=== PATIENT | male | born 1970 | race Caucasian/White ===

== ENCOUNTER 2017-09-30 18:34 | Emergency (ER) | payer BC, SELFPAY ==
[2017-09-30 19:18] VITALS: BP 141/85; PULSE 80; RESP 20; TEMP 36.6; O2SAT 99; BMI 23.1
--- NOTE | 2017-09-30 20:39 | HMH.EDUTC ---
[facility] Disposition Clinical Impression: Hiatal hernia Chest pain Qualifiers: Chest pain type: other chest pain Qualified Code(s): R07.89 - Other chest pain Disposition: Left Against Medical Advice Condition on Discharge: Good Instructions: DI for Hiatal Hernia, DI for Chest Pain Additional Instructions: As we discussed, this is against my advice. We have reviewed the possible causes of your symptoms and the risk associated with them. You accept these risk and want to go home rather then cardiac workup. Seek care immediately for new or worsening symptoms. we have provided you with a list of providers accepting patients. I would encourage you find him a new primary care provider and make an appt YASMIN as it can take weeks to get a new patient appointment. In the meantime, follow up in the clinic or ER for new, worsening or persistent symptoms. Forms: Work/School Release Time of Disposition: 21:33 Medical Decision Making Vital Signs: 09/30/17 19:18 09/30/17 21:34 Temperature 97.9 F 97 F L Temperature Source Temporal Artery Scan Pulse Rate 88 Pulse Rate [Brachial] 80 Respiratory Rate 20 20 Blood Pressure 145/86 Blood Pressure [Right Arm] 141/85 Blood Pressure Mean [Right Arm] 103 Blood Pressure Source [Right Arm] Automatic Cuff Blood Pressure Position [Right Arm] Sitting 02 Sat by Pulse Oximetry 99 Oxygen Delivery Method Room Air - Lab Data Lab results reviewed: Yes: I reviewed the patient's lab results. Lab Results 09/30/17 20:46: Influenza Type A Ag Negative, Influenza Type B Ag Negative - Radiology Data #1 Image(s): Chest Image Reviewed: Yes I have reviewed radiologist's interpretation, Yes I reviewed the patient's radiology image w/the ED provider Chelsie w/ Dr. Pinto then Dr. Alvarez read it. Moderate hiatal hernia. No acute findings - Pato Inquiry Pt receiving controlled substance: No - Reevaluation(s) Time: 20:45 Reevaluation #1: Discussed symptoms and exam with pt. reports she wasn't told about chest pain and pt admits he hadn't told anyone (including triage/nursing staff). Discussed concerns with symptoms and possible differentials and risk of not getting immediate medical attention. Advise immediate transfer to ER. Pt refusing. Wants flu and CXR first and if negative we will talk then . He declines any cardiac workup at this time until those results are available despite the risk of declining suddenly. Time: 21:20 Reevaluation #3: Rvwd flu test and CXR results with patient. Re-encouraged Cardiac workup. patient continues to refuse. Wants to go home. Will agree to return for new, worsening or persistent symptoms. Again I discussed the risk if this is cardiac how it can worsen, even suddenly, and he could not make it back to hospital before dying. pt wants to accept this risk and leave. [facility] HPI - General Stated complaint: Headache,SOB,Sore Throat Time Seen by Provider: 09/30/17 20:39 Mode of Arrival: Ambulatory Source of Information: Patient Limitations: No Limitations Description of Symptoms (Recalled from Triage Doc. by RN): PT IS C/O CONGESTION AND A COUGH THAT STARTED YESTERDAY HEENT Symptoms (Recalled from RN notes): No Resp Symptoms (Recalled from RN notes): Yes (COUGH) Skin Symptoms (Recalled from RN notes): No MS Symptoms (Recalled from RN notes): No Functional Status (Recalled from RN notes): NA - History of Present Illness Provider Complaint: c/o nonprod cough, SOA, left anterior chest pain. Reports started yesterday. Unchanged today. No known sick contacts. Hx of SVT w/ ablation. Otherwise, hasn't been to doctor in who knows how long . Hasn't taken or tried anything for symptoms. Chest pain present at rest like a headache in my chest . Worse with cough. Unchanged with movement or touch. - Related Data Home Medications Medication Instructions Recorded Confirmed No Known Home Medications [No 09/30/17 09/30/17 Known Home Medications] Al
--- NOTE | 2017-09-30 20:46 | XR_ITS ---
XR chest 2V HISTORY: ITS.REASON: nonprod cough, SOA, CP worse w/ cough, smoker ORDERING PHYSICIAN: Jameel Bryant PATIENT AGE: 46 years COMPARISON: 03/17/2016 FINDINGS: Normal heart size. Hiatal hernia. The lungs are clear without infiltrates, suspicious nodules, or pleural effusions. No acute bony abnormalities. IMPRESSION: Moderate-sized hiatal hernia, no acute finding
--- NOTE | 2017-09-30 20:46 | ED_ITS ---
[facility] Disposition Clinical Impression: Hiatal hernia Chest pain Qualifiers: Chest pain type: other chest pain Qualified Code(s): R07.89 - Other chest pain Disposition: Left Against Medical Advice Condition on Discharge: Good Instructions: DI for Hiatal Hernia, DI for Chest Pain Additional Instructions: As we discussed, this is against my advice. We have reviewed the possible causes of your symptoms and the risk associated with them. You accept these risk and want to go home rather then cardiac workup. Seek care immediately for new or worsening symptoms. we have provided you with a list of providers accepting patients. I would encourage you find him a new primary care provider and make an appt YASMIN as it can take weeks to get a new patient appointment. In the meantime, follow up in the clinic or ER for new, worsening or persistent symptoms. Forms: Work/School Release Time of Disposition: 21:33 Medical Decision Making Vital Signs: 09/30/17 19:18 09/30/17 21:34 Temperature 97.9 F 97 F L Temperature Source Temporal Artery Scan Pulse Rate 88 Pulse Rate [Brachial] 80 Respiratory Rate 20 20 Blood Pressure 145/86 Blood Pressure [Right Arm] 141/85 Blood Pressure Mean [Right Arm] 103 Blood Pressure Source [Right Arm] Automatic Cuff Blood Pressure Position [Right Arm] Sitting 02 Sat by Pulse Oximetry 99 Oxygen Delivery Method Room Air - Lab Data Lab results reviewed: Yes: I reviewed the patient's lab results. Lab Results 09/30/17 20:46: Influenza Type A Ag Negative, Influenza Type B Ag Negative - Radiology Data #1 Image(s): Chest Image Reviewed: Yes I have reviewed radiologist's interpretation, Yes I reviewed the patient's radiology image w/the ED provider Chelsie w/ Dr. Pitno then Dr. Alvarez read it. Moderate hiatal hernia. No acute findings - Pato Inquiry Pt receiving controlled substance: No - Reevaluation(s) Time: 20:45 Reevaluation #1: Discussed symptoms and exam with pt. reports she wasn't told about chest pain and pt admits he hadn't told anyone (including triage/nursing staff). Discussed concerns with symptoms and possible differentials and risk of not getting immediate medical attention. Advise immediate transfer to ER. Pt refusing. Wants flu and CXR first and if negative we will talk then . He declines any cardiac workup at this time until those results are available despite the risk of declining suddenly. Time: 21:20 Reevaluation #3: Rvwd flu test and CXR results with patient. Re-encouraged Cardiac workup. patient continues to refuse. Wants to go home. Will agree to return for new, worsening or persistent symptoms. Again I discussed the risk if this is cardiac how it can worsen, even suddenly, and he could not make it back to hospital before dying. pt wants to accept this risk and leave. [facility] HPI - General Stated complaint: Headache,SOB,Sore Throat Time Seen by Provider: 09/30/17 20:39 Mode of Arrival: Ambulatory Source of Information: Patient Limitations: No Limitations Description of Symptoms (Recalled from Triage Doc. by RN): PT IS C/O CONGESTION AND A COUGH THAT STARTED YESTERDAY HEENT Symptoms (Recalled from RN notes): No Resp Symptoms (Recalled from RN notes): Yes (COUGH) Skin Symptoms (Recalled from RN notes): No MS Symptoms (Recalled from RN notes): No Functional Status (Recalled from RN notes): NA - History of Present Illness Provider Complaint: c/o nonprod cou
[2017-09-30 21:16] LABS: UTC Influenza A Antigen Negative (Negative); UTC Influenza B Antigen Negative (Negative)
[2017-09-30 21:34] VITALS: BP 145/86; PULSE 88; RESP 20; TEMP 36.1; O2SAT 99
== END 2017-09-30 21:35 | disposition left against medical advice (07) ==
PROVIDERS: Emergency Provider Nurse Practitioner Family
DX: R07.89 Other chest pain (principal); Z53.21 Procedure and treatment not carried out due to patient leaving prior to being seen by health care provider; J02.9 Acute pharyngitis, unspecified; R06.02 Shortness of breath; R51 Headache
CPT/HCPCS: 71046; 87804; 99202

== ENCOUNTER → 2019-03-16 16:25 | Outpatient (CLI) | payer BC, SELFPAY ==
--- NOTE | 2019-03-16 16:32 | XR_ITS ---
XR foot LT min 3V HISTORY: ITS.REASON: LT. FOOT PAIN ORDERING PHYSICIAN: Darion Diana MD PATIENT AGE: 48 years COMPARISON: None FINDINGS: No fracture or dislocation. No lytic or blastic change. There is normal mineralization.. The joint spaces are well-preserved. No significant degenerative/arthritic changes. No erosive changes evident. There is a small calcaneal spur nonspecific IMPRESSION: Negative, no acute finding
== END ==
PROVIDERS: PCP Family Medicine; Visit Provider Family Medicine
DX: M79.672 Pain in left foot (principal)
CPT/HCPCS: 73630

== ENCOUNTER 2020-05-20 06:10 | Emergency (ER) | payer BC, SELFPAY ==
--- NOTE | 2020-05-20 06:15 | PC.NURSE ---
urine obtained and sent to lab.discussed waiting on lab results for toradol. doesn't want strong pain meds.
[2020-05-20 06:20] VITALS: BP 124/91; PULSE 58; RESP 17; TEMP 36.5; O2SAT 99; BMI 26.9
--- NOTE | 2020-05-20 06:21 | PC.NURSE ---
placed in gown, given blankets
[2020-05-20 06:37] LABS: Microscopic, Urine URINE MICROSCOPIC (MICROSCOPIC)
[2020-05-20 06:40] LABS: Basophils # 0.1 K/mm3 (0-0.2); Basophils % 0.6 % (0.1-2.0); Eosinophils # 0.2 K/mm3 (0.0-0.4); Eosinophils % 1.6 % (0.1-12.0); Hematocrit 54.3 % (42.0-52.0); Lymphocytes # 1.3 K/mm3 (0.7-4.5); Lymphocytes % 14.2 % (10-50); Mean Corpuscular HGB Conc 33.5 g/dL (31.8-35.4); Mean Corpuscular Hemoglobin 31.9 pg (27.0-31.2); Mean Corpuscular Volume 95.2 fl (80-94); Monocytes # 0.5 K/mm3 (0.1-1.0); Monocytes % 5.6 % (1.7-9.3); Neutrophils # 7.2 K/mm3 (1.8-7.8); Platelet Count 244 K/mm3 (142-424); Red Cell Distribution Width 13.5 % (11.5-17.5); White Blood Count 9.2 K/mm3 (4.8-10.8)
[2020-05-20 06:41] LABS: Hemoglobin 18.2 g/dL (14.1-18.0)
[2020-05-20 06:46] LABS: Chloride 104 mmol/L (98-107); Potassium 4.4 mmoL/L (3.5-5.1); Sodium 139 mmol/L (136-145)
--- NOTE | 2020-05-20 06:47 | CT_ITS ---
PROCEDURE: CT ABDOMEN PELVIS WO CON CLINICAL INDICATION: llq abd pain Left lower quadrant abdominal pain COMPARISON: CT CT ABDOMEN PELVIS WO CON from 04/25/2019 TECHNIQUE: Axial images obtained with sagittal and coronal reformats. All CT scans at the facility use one or more dose reduction, viz: automated exposure control, ma/kV adjustment per patient size (including targeted exams where dose is matched to indication, i.e. head), or iterative reconstruction technique. FINDINGS: LOWER THORAX: There is a large hiatal hernia. ABDOMEN & PELVIS: A 3 mm hypodensity is present in the left hepatic lobe which is stable nonspecific too small to categorize. The liver is otherwise unremarkable. The spleen, adrenal glands, pancreas, and gallbladder have an unremarkable appearance. There are punctate bilateral renal calculi. A 4 mm stone is present in the proximal to mid 1/3 of the left ureter at the L3-L4 level. This is causing mild left-sided obstructive uropathy. Unremarkable appendix. There is a mild amount of retained colonic feces. The bowel gas pattern is nonspecific. No intestinal obstruction or free air. No acute bony findings. IMPRESSION: Bilateral nephrolithiasis with 4 mm stone in the proximal to mid left ureter causing mild left-sided obstructive uropathy. Large hiatal hernia. Dictated by: Jer Alvarez MD 05/20/2020 09:29 Jer Alvarez MD in [place] 05/20/2020 09:29
[2020-05-20 06:48] LABS: Amylase 112 U/L (30-110); Blood Urea Nitrogen 4 mg/dl (9-20); Creatinine Clearance Estimated 125 mL/min (50-200); Estimated Glomerular Filt Rate 80 ml/min (>60); GFR (African American) 97 ML/MIN (>60)
[2020-05-20 06:49] LABS: Alanine Aminotransferase 26 U/L (12-78); Albumin Level 4.4 g/dl (3.5-5.0); Albumin/Globulin Ratio 1.3 (1.1-1.8); Alkaline Phosphatase 81 U/L (38-126); Anion Gap 11.4 mEq/L (5-15); Aspartate Amino Transferase 29 U/L (17-59); Bilirubin,Total 0.5 mg/dl (0.2-1.3); Calcium 9.3 mg/dl (8.4-10.2); Carbon Dioxide 28 mmol/L (22.0-30.0); Globulin 3.4 g/dL (1.3-3.2); Glucose 141 mg/dl (74-100); Lipase 225 U/L (23-300); Total Protein,Serum 7.8 g/dl (6.3-8.2)
[2020-05-20 06:55] LABS: Appearance,Urine CLOUDY (Clear); Bilirubin,Urine Negative (Negative); Blood, Urine 3+ (Negative); Color,Urine YELLOW (Yellow); Glucose,Urine (UA) Negative (Negative); Ketones,Urine Negative (Negative); Leukocyte Esterase,Urine Negative (Negative); Nitrate,Urine Negative (Negative); Protein,Urine 1+ (Negative); Specific Gravity, Urine >= 1.030 (1.005-1.030); Urobilinogen,Urine 0.2 EU/dl (0.2)
[2020-05-20 07:03] LABS: RBC,Urine 20-50 #/hpf (0-3)
--- NOTE | 2020-05-20 07:36 | HMH.EDNVD ---
ED Disposition Clinical Impression: Renal colic on left side, Elevated hemoglobin Disposition: Home, Self-Care Condition on Discharge: Good Instructions: DI for Kidney Stones Additional Instructions: fluids and call pcp for follow up and also dr saldana Prescriptions: Tamsulosin HCl [Flomax 0.4mg capsule] 0.4 mg PO HS #10 cap Transmission Status: Pending to [facility] Hydrocod/Acet 5/325 mg [[place] 5/325mg tablet] 1 tab PO Q6HP PRN #10 tab PRN Reason: Moderate To Severe Pain Prescription Printed Referrals: Darion Diana MD [Primary Care Provider] - Zaid Saldana MD [Staff Physician] - - Critical Care Critical Care Time: No Attestation: On 05/20/20, the high probability of a clinically significant, sudden or life threatening deterioration of the following system(s) required my full and direct attention, intervention and personal management. The time I documented below is in addition to time spent performing reported procedures but includes the following listed in this critical care notation. Medical Decision Making - Medical Records Medical records reviewed: Yes: I reviewed the patient's medical records. - Pato Inquiry Pt receiving controlled substance: No Vital Signs: 05/20/20 06:20 Temperature 97.7 F Temperature Source Oral Pulse Rate [Right Brachial] 58 L Respiratory Rate 17 Blood Pressure [Right Arm] 124/91 H Blood Pressure Mean [Right Arm] 102 Blood Pressure Source [Right Arm] Automatic Cuff Blood Pressure Position [Right Arm] Sitting 02 Sat by Pulse Oximetry 99 Oxygen Delivery Method Room Air - Lab Data Lab results reviewed: Yes: I reviewed the patient's lab results. Lab Results 05/20/20 06:20: Urine Color Yellow, Urine Appearance Cloudy, Urine pH 5.0, Ur Specific [place] >= 1.030, Urine Protein 1+, Urine Glucose (UA) Negative, Urine Ketones Negative, Urine Blood 3+, Urine Nitrate Negative, Urine Bilirubin Negative, Urine Urobilinogen 0.2, Ur Leukocyte Esterase Negative, Urine RBC 20-50, Urine WBC 3-5, Ur Squamous Epith Cells 3-5 05/20/20 06:20: WBC 9.2, RBC 5.70, Hgb 18.2 H*, Hct 54.3 H, MCV 95.2 H, MCH 31.9 H, MCHC 33.5, RDW 13.5, Plt Count 244, MPV 8.0, Neut % (Auto) 78.0, Lymph % (Auto) 14.2, [place] % (Auto) 5.6, Eos % (Auto) 1.6, Baso % (Auto) 0.6, Neut # (Auto) 7.2, Lymph # (Auto) 1.3, [place] # (Auto) 0.5, Eos # (Auto) 0.2, Baso # (Auto) 0.1 05/20/20 06:20: Sodium 139, Potassium 4.4, Chloride 104, Carbon Dioxide 28, Anion Gap 11.4, BUN 4 L, Creatinine 1.00, Estimated Creat Clear 125, Estimated GFR 80, Est GFR ( Amer) 97, Glucose 141 H, Calcium 9.3, Total Bilirubin 0.5, AST 29, ALT 26, Alkaline Phosphatase 81, Total Protein 7.8, Albumin 4.4, Globulin 3.4 H, Albumin/Globulin Ratio 1.3, Amylase 112 H, Lipase 225 Result diagrams: 05/20/20 06:20 05/20/20 06:20 Orders (Tests/Meds): ED MEDICATIONS Generic Name Dose Route Start Last Admin Trade Name Freq PRN Reason Stop Dose Admin Sodium Chloride 1,000 mls @ 999 mls/hr 05/20/20 06:30 05/20/20 06:30 Sod Chlor 0.9% 1000ml Bag IV 05/20/20 07:30 999 mls/hr .Q1H1M FREEDOM Administration Discontinued Medications Generic Name Dose Route Start Last Admin Trade Name Freq PRN Reason Stop Dose Admin Ketorolac Tromethamine 30 mg 05/20/20 06:56 05/20/20 06:59 Toradol 30mg/Ml Vial IV 05/20/20 06:57 30 mg ONCE ONE Administration Ondansetron HCl 4 mg 05/20/20 06:56 05/20/20 06:59 Zofran 4mg/2ml Vial IV 05/20/20 06:57 4 mg ONCE ONE Administration ORDERS Category Date Time Status CT abdomen pelvis wo con Stat Cat Scan 05/20/20 06:47 Taken - CT Data CT Scan: Abdomen, Pelvis Time Received: 07:[address] Reviewed: Yes: I have viewed the radiologist's interpretation Preliminary Findings: Abnormal (lt kidney stone ) Nausea/Vomiting/Diarrhea HPI - General Chief complaint: Abdominal Pain Stated complaint: Left sided pain,nausea Time Seen by Provider: 05/20
[2020-05-20 07:53] VITALS: BP 136/98; PULSE 73; RESP 18; TEMP 36.5; O2SAT 99
== END 2020-05-20 07:55 | disposition home or self-care (01) ==
PROVIDERS: Emergency Provider Emergency Medicine; PCP Family Medicine
DX: N20.0 Calculus of kidney (principal); D58.2 Other hemoglobinopathies; Z87.442 Personal history of urinary calculi; F17.210 Nicotine dependence, cigarettes, uncomplicated; Z90.09 Acquired absence of other part of head and neck
CPT/HCPCS: 74176; 80053; 81001; 82150; 83690; 85025; 96365; 96375; 99283; J2405

== ENCOUNTER 2020-06-09 12:55 | Emergency (ER) | payer OTHER, SELFPAY ==
--- NOTE | 2020-06-09 13:01 | HMH.EDGENADL ---
ED Disposition Clinical Impression: Closed head injury Qualifiers: Encounter type: initial encounter Qualified Code(s): S09.90XA - Unspecified injury of head, initial encounter Laceration of scalp Qualifiers: Encounter type: initial encounter Qualified Code(s): S01.01XA - Laceration without foreign body of scalp, initial encounter Disposition: Home, Self-Care Condition on Discharge: Good Additional Instructions: Keep staple sites clean, dry, and intact over the next 10 to 14 days. If any activities seem to elicit any symptoms such as headache, nausea/vomiting please refrain from that activity for the next 24 hours and tried again. Refrain from any activity that predisposes to a second head injury while recovering from first head injury. Immediately return to our emergency department if any recurrent or new symptoms. - Critical Care Critical Care Time: No Attestation: On , the high probability of a clinically significant, sudden or life threatening deterioration of the following system(s) required my full and direct attention, intervention and personal management. The time I documented below is in addition to time spent performing reported procedures but includes the following listed in this critical care notation. Medical Decision Making - Medical Records Medical records reviewed: Yes: I reviewed the patient's medical records. - Pato Inquiry Pt receiving controlled substance: No Vital Signs: 06/09/20 13:04 06/09/20 15:29 Temperature 98.2 F Temperature Source Oral Pulse Rate [Right Radial] 86 82 Respiratory Rate 17 18 Blood Pressure [Right Arm] 164/105 H 160/134 H Blood Pressure Mean [Right Arm] 124 142 Blood Pressure Source [Right Arm] Automatic Cuff Blood Pressure Position [Right Arm] Sitting 02 Sat by Pulse Oximetry 100 98 Oxygen Delivery Method Room Air - Lab Data Lab Results 06/09/20 13:01: WBC 8.2, RBC 5.49, Hgb 17.1, Hct 51.6, MCV 93.9, MCH 31.1, MCHC 33.1, RDW 12.8, Plt Count 245, MPV 7.2 L, Neut % (Auto) 62.6, Lymph % (Auto) 27.5, [place] % (Auto) 6.5, Eos % (Auto) 2.7, Baso % (Auto) 0.7, Neut # (Auto) 5.1, Lymph # (Auto) 2.3, [place] # (Auto) 0.5, Eos # (Auto) 0.2, Baso # (Auto) 0.1 06/09/20 13:01: Sodium 138, Potassium 3.7, Chloride 103, Carbon Dioxide 28, Anion Gap 10.7, BUN 13, Creatinine 1.00, Estimated Creat Clear 99, Estimated GFR 80, Est GFR ( Amer) 97, Glucose 108 H, Calcium 9.4, Total Bilirubin 0.6, AST 41, ALT 28, Alkaline Phosphatase 82, Total Protein 7.7, Albumin 4.5, Globulin 3.2, Albumin/Globulin Ratio 1.4 Result diagrams: 06/09/20 13:01 06/09/20 13:01 Orders (Tests/Meds): ED MEDICATIONS Discontinued Medications Generic Name Dose Route Start Last Admin Trade Name Freq PRN Reason Stop Dose Admin Tetanus/Reduced Diphtheria/Acell Pertussis 0.5 ml 06/09/20 13:07 Tet/Diphth/Pert-Adult 0.5ml Syringe IM 06/09/20 13:08 .ONCE ONE Medical Decision Narrative: Patient 49-year-old presenting after head injury without loss of consciousness. Tetanus will be updated due to lacerations noted to scalp and patient is unsure of his tetanus status. He did not lose consciousness. No altered mental status. No nausea/vomiting. The mechanism rather significant and so CT head imaging will be obtained to ensure no acute skull fracture/ICH as well as a CT cervical spine without contrast to ensure no cervical spine fracture/subluxation. Patient was assessed in typical ABC fashion to ensure no compromised airway, breathing, or circulation. Patient with normal vital signs and is rather well-appearing on exam. He has a GCS of 15. No other injuries or tenderness on palpation of long bones in upper or lower extremities throughout body. Again, patient is in no acute distress currently. CT- for cervical spine fracture/subluxation and CT head without ICH/skull fracture. At this time concussion cannot be ruled out and I went over in detail concussion protocol. Patient agrees.
[2020-06-09 13:04] VITALS: BP 164/105; PULSE 86; RESP 17; TEMP 36.8; O2SAT 100; BMI 21.8
--- NOTE | 2020-06-09 13:07 | CT_ITS ---
PROCEDURE: CT CERVICAL SPINE WO CON CLINICAL INDICATION: neck pain s/p head injury Neck injury with pain, contusion/abrasion or hematoma, cervical sprain/strain the COMPARISON: No exams were available for comparison TECHNIQUE: Axial images obtained with sagittal and coronal reformats. All CT scans at the facility use one or more dose reduction, viz: automated exposure control, ma/kV adjustment per patient size (including targeted exams where dose is matched to indication, i.e. head), or iterative reconstruction technique. Axial spiral CT scanning performed of the cervical spine beginning at the base of the skull and continuing to the upper T-spine. 3-D multiplanar reconstruction with 3-D manipulation of volumetric data set in image rendering was completed by the radiologist and/or technologist with the supervision of the radiologist on independent workstation. FINDINGS: There is straightening/reversal of the normal lordosis which may be due to patient positioning or muscle spasm. No fracture or dislocation.. There is mild degenerative disc disease from C2-C7 with some decrease in the disc space. Mild facet and uncovertebral hypertrophy also noted. There is mild right-sided foraminal narrowing at C4-C5 and left-sided foraminal narrowing at C5-C6. Paraseptal emphysematous changes are present in the lung apices with some scarring. There is mild cervical curvature convex left IMPRESSION: Cervical spondylosis with reversal of lordosis and mild cervical curvature. No acute fracture Dictated by: Jer Alvarez MD 06/09/2020 14:08 Jer Alvarez MD in [place] 06/09/2020 14:08
--- NOTE | 2020-06-09 13:07 | CT_ITS ---
PROCEDURE: CT HEAD/BRAIN WO CON CLINICAL INDICATION: head injury with multiple lacerations Head injury with headache/pain, contusion, abrasion or hematoma COMPARISON: No exams were available for comparison TECHNIQUE: Axial images obtained. All CT scans at the facility use one or more dose reduction, viz: automated exposure control, ma/kV adjustment per patient size (including targeted exams where dose is matched to indication, i.e. head), or iterative reconstruction technique. FINDINGS: No midline shift, mass effect, intracranial hemorrhage, hydrocephalus, or extra-axial fluid collection is evident. There is laceration to the scalp in the left vertex and right parietal and temporal region. No underlying calvarial fracture. 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 The calvarium has an unremarkable appearance. No mastoid effusion. No sinus air-fluid level. IMPRESSION: No acute intracranial findings. Scalp lacerations Dictated by: Jer Alvarez MD 06/09/2020 13:57 Jer Alvarez MD in [place] 06/09/2020 13:57
--- NOTE | 2020-06-09 13:13 | PC.NURSE ---
pt to ct via stretcher at this time.
--- NOTE | 2020-06-09 13:16 | PC.NURSE ---
dr whittaker consulting with me hospitalist at this time concerning possible transfer.
[2020-06-09 13:34] LABS: Basophils # 0.1 K/mm3 (0-0.2); Basophils % 0.7 % (0.1-2.0); Eosinophils # 0.2 K/mm3 (0.0-0.4); Eosinophils % 2.7 % (0.1-12.0); Hematocrit 51.6 % (42.0-52.0); Hemoglobin 17.1 g/dL (14.1-18.0); Lymphocytes # 2.3 K/mm3 (0.7-4.5); Lymphocytes % 27.5 % (10-50); Mean Corpuscular HGB Conc 33.1 g/dL (31.8-35.4); Mean Corpuscular Hemoglobin 31.1 pg (27.0-31.2); Mean Corpuscular Volume 93.9 fl (80-94); Mean Platelet Volume 7.2 fl (7.4-10.4); Monocytes # 0.5 K/mm3 (0.1-1.0); Monocytes % 6.5 % (1.7-9.3); Neutrophils # 5.1 K/mm3 (1.8-7.8); Neutrophils % 62.6 % (37.0-80.0); Platelet Count 245 K/mm3 (142-424); Red Blood Count 5.49 M/mm3 (4.60-6.20); Red Cell Distribution Width 12.8 % (11.5-17.5); White Blood Count 8.2 K/mm3 (4.8-10.8)
[2020-06-09 13:42] LABS: Chloride 103 mmol/L (98-107); Potassium 3.7 mmoL/L (3.5-5.1); Sodium 138 mmol/L (136-145)
[2020-06-09 13:45] LABS: Alanine Aminotransferase 28 U/L (12-78); Albumin Level 4.5 g/dl (3.5-5.0); Albumin/Globulin Ratio 1.4 (1.1-1.8); Alkaline Phosphatase 82 U/L (38-126); Anion Gap 10.7 mEq/L (5-15); Aspartate Amino Transferase 41 U/L (17-59); Bilirubin,Total 0.6 mg/dl (0.2-1.3); Blood Urea Nitrogen 13 mg/dl (9-20); Calcium 9.4 mg/dl (8.4-10.2); Carbon Dioxide 28 mmol/L (22.0-30.0); Creatinine Clearance Estimated 99 mL/min (50-200); Estimated Glomerular Filt Rate 80 ml/min (>60); GFR (African American) 97 ML/MIN (>60); Globulin 3.2 g/dL (1.3-3.2); Glucose 108 mg/dl (74-100); Total Protein,Serum 7.7 g/dl (6.3-8.2)
[2020-06-09 15:29] VITALS: BP 160/134; PULSE 82; RESP 18; O2SAT 98
[2020-06-09 16:27] VITALS: BP 135/87; PULSE 87; RESP 17; TEMP 36.8; O2SAT 100
== END 2020-06-09 16:28 | disposition home or self-care (01) ==
PROVIDERS: Emergency Provider Emergency Medicine; PCP Family Medicine
DX: S01.01XA Laceration without foreign body of scalp, initial encounter (principal); S00.03XA Contusion of scalp, initial encounter; W31.83XA Contact with special construction vehicle in stationary use, initial encounter; Y92.69 Other specified industrial and construction area as the place of occurrence of the external cause; Y99.0 Civilian activity done for income or pay; Z23 Encounter for immunization; F17.210 Nicotine dependence, cigarettes, uncomplicated
CPT/HCPCS: 12006; 70450; 72125; 80053; 85025; 90471; 90715; 99283

== ENCOUNTER 2020-06-18 14:20 | Emergency (ER) | payer OTHER, BC, SELFPAY ==
[2020-06-18 14:47] VITALS: BP 132/80; PULSE 60; RESP 18; TEMP 36.7; O2SAT 98; BMI 29.9
[2020-06-18 14:49] VITALS: BP 132/80; PULSE 60; RESP 18; TEMP 36.7; O2SAT 98
== END 2020-06-18 14:50 | disposition home or self-care (01) ==
PROVIDERS: Emergency Provider Nurse Practitioner; PCP Family Medicine
DX: S01.01XD Laceration without foreign body of scalp, subsequent encounter (principal)

== ENCOUNTER → 2021-04-11 07:58 | Outpatient (CLI) | payer BC, SELFPAY ==
[2021-04-11 08:30] LABS: Hemoglobin A1C 5.6 % (4.0-6.0)
[2021-04-11 09:52] LABS: Anion Gap 12.4 mEq/L (5-15); Blood Urea Nitrogen 11 mg/dl (9-20); Calcium 9.1 mg/dl (8.4-10.2); Carbon Dioxide 27 mmol/L (22.0-30.0); Chloride 105 mmol/L (98-107); Estimated Glomerular Filt Rate 79 ml/min (>60); GFR (African American) 96 ML/MIN (>60); Glucose 90 mg/dl (74-100); Potassium 4.4 mmoL/L (3.5-5.1); Sodium 140 mmol/L (136-145)
[2021-04-11 10:24] LABS: Thyroid Stimulating Hormone 2.44 uIU/mL (0.465-4.68)
[2021-04-11 10:59] LABS: Vitamin B12 271 pg/mL (239-931)
== END ==
PROVIDERS: Visit Provider Nurse Practitioner Family
DX: R51.9 Headache, unspecified (principal); R53.83 Other fatigue; R73.9 Hyperglycemia, unspecified; R29.2 Abnormal reflex; G47.00 Insomnia, unspecified; G47.19 Other hypersomnia; G47.8 Other sleep disorders; G89.29 Other chronic pain; R06.83 Snoring; Z87.828 Personal history of other (healed) physical injury and trauma
CPT/HCPCS: 36415; 80048; 82607; 82746; 83036; 84443

== ENCOUNTER → 2021-05-12 11:23 | Outpatient (CLI) | payer BC, SELFPAY | PROVIDERS: PCP Family Medicine; Visit Provider Nurse Practitioner Family | DX: G47.8 Other sleep disorders (principal); G47.00 Insomnia, unspecified; G47.19 Other hypersomnia; R06.83 Snoring; R51.9 Headache, unspecified; R53.83 Other fatigue | CPT/HCPCS: G0399 ==

== ENCOUNTER → 2021-05-23 08:25 | Outpatient (CLI) | payer BC, SELFPAY ==
--- NOTE | 2021-05-23 08:44 | MR_ITS ---
PROCEDURE INFORMATION: Exam: MR Head Without Contrast Exam date and time: 05/23/2021 8:44 AM Age: 50 years old Clinical indication: Pain and injury or trauma. TECHNIQUE: Imaging protocol: MR of the head without contrast. COMPARISON: CT HEAD/BRAIN WO CON 06/09/2020 1:12 PM FINDINGS: Brain: There are occasional nonspecific foci of high signal abnormality in the staton radiata and centrum semiovale. These are best seen on the flair images. These foci may represent areas of gliosis, demyelination, and/or chronic ischemic change. Cerebral ventricles: Normal. No ventriculomegaly. Bones/joints: Unremarkable. Paranasal sinuses: There is moderate sinus disease. Mastoid air cells: Normal as visualized. No mastoid effusion. Orbital cavity: Unremarkable. Soft tissues: Unremarkable. IMPRESSION: 1. There are occasional nonspecific foci of high signal abnormality in the staton radiata and centrum semiovale. These are best seen on the flair images. These foci may represent areas of gliosis, demyelination, and/or chronic ischemic change. 2. There is moderate sinus disease.
== END ==
PROVIDERS: PCP Family Medicine; Visit Provider Nurse Practitioner Family
DX: R51.9 Headache, unspecified (principal); R29.2 Abnormal reflex; G47.00 Insomnia, unspecified; G47.19 Other hypersomnia; G47.8 Other sleep disorders; G89.29 Other chronic pain; R06.83 Snoring; R53.83 Other fatigue; R73.9 Hyperglycemia, unspecified; Z87.828 Personal history of other (healed) physical injury and trauma
CPT/HCPCS: 70551

== ENCOUNTER → 2021-06-22 08:08 | Outpatient (CLI) | payer BC, SELFPAY ==
--- NOTE | 2021-06-22 08:11 | CT_ITS ---
PROCEDURE: CT SINUS WO CON CLINICAL HISTORY: chronic sinus congestion Sinus headaches COMPARISON: CT CT HEAD/BRAIN WO CON from 06/09/2020 MR MR HEAD/BRAIN WO CON from 05/23/2021 TECHNIQUE: Axial images obtained with sagittal and coronal reformats. All CT scans at the facility use one or more dose reduction, viz: automated exposure control, ma/kV adjustment per patient size (including targeted exams where dose is matched to indication, i.e. head), or iterative reconstruction technique. FINDINGS: Orbits appear unremarkable. There is no ventriculomegaly. There is mild mucosal thickening in the inferior aspect of the right maxillary sinus and the inferior most aspect of the left maxillary sinus. There is minimal mucosal thickening in the superior most ethmoid air cells. There is mild mucosal thickening in the inferior left frontal sinus. There is cerumen in the left external auditory canal. There is cerumen in the right external auditory canal. Mastoid air cells are well aerated. There are no fractures. Again identified is fidencio cisterna magna and an arachnoid cyst in the medial middle cranial fossa. There is poor dentition with multiple broken teeth. There are numerous cervical lymph nodes, none of which are enlarged by CT criteria. IMPRESSION: 1. Minimal mucosal thickening in inferior maxillary sinuses, superior ethmoid sinuses, inferior left frontal sinus. 2. Bilateral external auditory canal cerumen. 3. 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 4. Poor dentition with multiple broken teeth. Consider dental consultation. Dictated by: Isaura Barajas MD 06/24/2021 08:48 Isaura Barajas MD in [place] 06/24/2021 08:48
== END ==
PROVIDERS: PCP Family Medicine; Visit Provider Otolaryngology
DX: J34.3 Hypertrophy of nasal turbinates (principal); J30.9 Allergic rhinitis, unspecified
CPT/HCPCS: 70486

== ENCOUNTER → 2021-06-29 08:20 | Outpatient (CLI) | payer BC, SELFPAY ==
[2021-06-30 11:11] LABS: Homocyst(e)ine 14.9 umol/L (0.0-14.5)
[2021-07-03 01:13] LABS: Methylmalonic Acid 452 nmol/L (0-378)
== END ==
PROVIDERS: Visit Provider Nurse Practitioner Family
DX: E53.8 Deficiency of other specified B group vitamins (principal)
CPT/HCPCS: 36415; 82131; 83090

== ENCOUNTER → 2021-12-14 21:02 | Outpatient (CLI) | payer BC, SELFPAY | LOC: SL 21:06 | PROVIDERS: PCP Family Medicine; Visit Provider Nurse Practitioner Family | DX: G47.33 Obstructive sleep apnea (adult) (pediatric) (principal) | CPT/HCPCS: 95810 ==

== ENCOUNTER → 2023-03-08 15:48 | Outpatient (CLI) | payer BC, SELFPAY ==
[2023-03-08 17:49] LABS: Vitamin B12 > 1000 pg/mL (239-931)
[2023-03-10 13:53] LABS: Homocyst(e)ine 19.5 umol/L (0.0-14.5)
[2023-03-10 16:03] LABS: Antiparietal Cell Antibody 1.9 Units (0.0-20.0)
[2023-03-13 07:08] LABS: Intrinsic Factor Abs, Serum 9.5 AU/mL (0.0-1.1)
[2023-04-13 08:38] LABS: Methylmalonic Acid 196 nmol/L (0-378)
== END ==
PROVIDERS: PCP Family Medicine; Visit Provider Nurse Practitioner Family
DX: E53.8 Deficiency of other specified B group vitamins (principal)
CPT/HCPCS: 36415; 82607; 83090; 83516; 83921; 86340

== ENCOUNTER → 2023-04-04 16:30 | Outpatient (CLI) | payer BC, SELFPAY ==
--- NOTE | 2023-04-04 16:37 | ECG_ITS ---
APPROVED REPORT Exam: Resting ECG HR:95 bpm ECG Measurements Heart Rate 95 AXES WA 155 P 57 QRSd 79 QRS 30 QT 304 T 73 QTc 357 Conclusion SINUS RHYTHM NORMAL ECG UNCONFIRMED REPORT Electronically signed by : Ron Levy MD 04/05/2023 20:48:11
== END ==
LOC: RT 16:30
PROVIDERS: PCP Family Medicine; Visit Provider Nurse Practitioner Family
DX: I49.9 Cardiac arrhythmia, unspecified (principal)
CPT/HCPCS: 93005

== ENCOUNTER → 2023-04-05 15:57 | Outpatient (CLI) | payer BC, SELFPAY | LOC: RT 15:57 | PROVIDERS: PCP Family Medicine; Visit Provider Nurse Practitioner Family | DX: I49.9 Cardiac arrhythmia, unspecified (principal); Z86.79 Personal history of other diseases of the circulatory system | CPT/HCPCS: 93270 ==

== ENCOUNTER 2024-07-12 13:04 | Emergency (ER) | payer BC, SELFPAY ==
[2024-07-12 13:22] VITALS: BP 152/98; PULSE 91; RESP 20; TEMP 36.6; O2SAT 100; BMI 24.8
--- NOTE | 2024-07-12 13:30 | EXP.UTC ---
Discharge Plan Disposition Patient Disposition: Home, Self-Care Condition: Good Prescriptions Prescriptions: New ondansetron 4 mg tablet,disintegrating 4 mg PO Q8H PRN (Reason: nausea and vomiting) Qty: 10 0RF No Action amitriptyline 25 mg tablet 25 mg PO HS 90 Days Qty: 90 1RF Nurtec ODT 75 mg tablet,disintegrating 75 mg PO ONCE PRN (Reason: migraine headache) 90 Days Qty: 24 1RF Rx Instructions: Place one tablet under the tongue at onset of headache. Do NOT repeat. Max dose one tablet in 24 hours. aspirin [Juwan Low Dose Aspirin] 81 mg tablet,delayed release (DR/EC) 81 mg PO DAILY metoprolol succinate [Toprol XL] 25 mg tablet extended release 24 hr 25 mg PO DAILY Qty: 30 5RF Referrals Follow up/Referrals: Darion Diana MD [Primary Care Provider] - See instructions Activity Restrictions/Add. Instructions Additional Instructions/Restrictions: Drink extra fluids with and between meals. If you have difficulty drinking, try very small amounts of water or suck on ice chips. ? Avoid fruit juices, as these do not replace minerals and can actually increase diarrhea. ? Children and adults can use sports drinks to replenish electrolytes. Younger children and infants should use products formulated for children, like oral rehydration solutions. ? Eat food in small amounts and let your stomach recover. ? Get lots of rest. You may feel tired or weak. ? No greasy or fried foods for the next 24-48 hours BRAT diet Bananas Rice Apples and [place] ? Make sure to drink plenty of liquids ? Return if needed ? Straight to ER if any life threatening symptoms ? Zofran as prescribed ? Follow up with family doctor in the next 48-72 hours if no improvement or any worsening of symptoms Clinical Impressions Clinical Impression: Nausea & vomiting Stand Alone Forms Stand Alone Forms: Work/School Release Instructions Patient Instructions: DI for Nausea -- Adult, DI for Vomiting -- Adult Print Language Print Language: [place] Discharge ED Provider: Masha Hunter [facility] HPI General Stated complaint: dizzy, upset stomach Mode of Arrival: Ambulatory Source of Information: Patient Time Seen by Provider: 07/12/24 13:30 Description of Symptoms (Recalled from Triage Doc. by RN): DIZZY, NAUSEA DENIES EAR PAIN, CALDERON, THROAT PAIN, CRAMPING IN STOMACH HEENT Symptoms (Recalled from RN notes): No Resp Symptoms (Recalled from RN notes): No Skin Symptoms (Recalled from RN notes): No MS Symptoms (Recalled from RN notes): No Functional Status (Recalled from RN notes): WNL History of Present Illness Provider Complaint: Patient states that yesterday he had some N/V and vomited several times throughout the night and felt a little dizzy at times, States today he feels tired and achy and still having some nausea but no vomiting not sure if he may have been around someone with stomach bug or not Denies fever, denies dizziness at this time Related Data Home Medications ?Medication ?Instructions ?Recorded ?Confirmed aspirin 81 mg tablet,delayed 81 mg PO DAILY 05/30/23 05/30/23 release (Juwan Low Dose Aspirin) Previous Rx's ?Medication ?Instructions ?Recorded amitriptyline 25 mg tablet 25 mg PO HS Headache/insomnia 90 04/04/23 days #90 tabs rimegepant 75 mg disintegrating 75 mg PO ONCE PRN migraine 04/04/23 tablet (Nurtec ODT) headache 90 days #24 tabs metoprolol succinate 25 mg 25 mg PO DAILY #30 tabs 05/30/23 tablet,extended release 24 hr (Toprol XL) ondansetron 4 mg disintegrating 4 mg PO Q8H PRN nausea and 07/12/24 tablet vomiting #10 tabs Allergies Allergy/AdvReac Type Severity Reaction Status Date / Time Iodinated Contrast Media Allergy Itching Verified 05/30/23 15:07 Worker's Comp Is this a Worker's Comp case?: No [facility] Disclaimer: The information contained in this section may have been updated after the patient was seen, as this information can be updated by other users. Medical History Arrhythmia B12 deficiency Migraine without aura, not intractable, without status migrainosus LYNSEY (obstructive sleep apnea) Surgical History Hx of tonsillectomy Family History Other Hypertension Social History Smoking Status: Current every day smoker tobacco type: cigarettes packs per day: 1 second hand exposure: Yes alcohol intake: current alcohol intake frequency: 3 or more drinks per day substance use type: denies use current occupational status: employed Travel in the last 8 weeks: None household members: family housing: other current occupation: [employer] ROS Obtained: Yes All systems reviewed & no additional complaints except as documented and Yes Systems reviewed as appropriate & no additional complaints except as documented Constitutional Constitutional: Reports system reviewed and no additional complaints, except as documented, Reports as per HPI and Reports fatigue Eyes Eyes: Reports system reviewed and no additional complaints, except as documented and Reports as per HPI ENT Ears, Nose, Mouth, and Throat: Reports system reviewed and no additional complaints, except as documented, Reports as per HPI, Reports dizziness (yesterday), Denies otalgia, Denies nasal congestion, Denies nasal discharge, Denies sinus pain, Denies sinus pressure, Denies sore throat and Denies throat swelling Cardiovascular Cardiovascular: Reports system reviewed and no additional complaints, except as documented, Reports as per HPI, Denies chest pain, Denies chest pain at rest, Denies dyspnea on exertion, Denies edema and Denies lightheadedness Respiratory Respiratory: Reports system reviewed and no additional complaints, except as documented, Reports as per HPI, Denies shortness of breath, Denies cough and Denies dyspnea on exertion Gastrointestinal Gastrointestingal: Reports system reviewed and no additional complaints, except as documented, as per HPI, nausea and vomiting (yesterday); Denies abdominal pain, bloating, constipation, cramping, diarrhea, loose stools or melena Neurologic Neurologic: Reports dizziness (yesterday) Endocrine Endocrine: Reports fatigue Allergic/Immunologic Allergic/Immunologic: Denies throat swelling Physical Exam General General appearance: alert and in no apparent distress ENT ENT exam: Present normal exam, normal oropharynx and mucous membranes moist Expanded ENT Exam Throat exam: Present normal inspection; Absent tonsillar erythema or tonsillomegaly Chest Chest inspection: Present normal inspection and symmetric chest wall rise Respiratory Respiratory exam: Present normal lung sounds bilaterally; Absent respiratory distress or wheezes Cardiovascular Cardiovascular exam: Present regular rate, normal rhythm and normal heart sounds Abdominal Exam Abdominal exam: Present soft and normal bowel sounds; Absent distention or tenderness Neurological Exam Neurological exam: Present alert, oriented X3 and normal gait Medical Decision Making Medical Records Screening: Per USPSTF and CDC recommendations, given the prevalence of disease in our region, it is our hospital?s policy to screen for HIV and viral Hepatitis for all patients aged 18 and over and those with ongoing risk factors. Pato Inquiry Pt receiving controlled substance: No Pato was queried for this patient: No Vital Signs: 07/12/24 13:22 Temperature 97.9 F Temperature Source Oral Pulse Rate [Left Radial] 91 H Respiratory Rate 20 Blood Pressure [Left Arm] 152/98 H Blood Pressure Mean [Left Arm] 116 02 Sat by Pulse Oximetry 100 Medical Decision Narrative: Discussed with patient about lab work and iv fluids bolus and he refused at this time, States he feels better today just a little tired and still having nausea, patient given Zofran and gatoraid, drinking in room at this time no vomiting
[2024-07-12] MEDS: ONDANSETRON 4MG ODT 4 MG SL (13:40)
[2024-07-12 14:05] VITALS: BP 152/98; PULSE 91; RESP 20; TEMP 36.6
== END 2024-07-12 14:08 | disposition home or self-care (01) ==
PROVIDERS: Emergency Provider Nurse Practitioner; PCP Family Medicine
DX: R11.2 Nausea with vomiting, unspecified (principal)
CPT/HCPCS: 99213; G0381; Q0162

== ENCOUNTER 2025-05-23 10:04 | Outpatient (CLI) | payer BC, SELFPAY ==
--- OUTSIDE RECORDS SUMMARY | 2025-05-23 10:09 | XMS_ITS | Patient Health Record ---
[facility] Address [address] [facility] [address] [place] [id number] Care Team Providers Care Resin Mixer Name Role Phone Disha Diana Unavailable [phone] Allergies No Known Allergies Results Component Value Reference Range Notes EM Reviewed date:05/22/2025 09:13:11 AM Interpretation: Performing Lab: Notes/Report: Reason For Referral No Information Medications Medication SIG (Take, Route, Frequency, Duration) Notes Start Date End Date Status Ondansetron 4 MG 1 tab(s) orally 3 ti mes a day, prn 03/19/2021 Not-Taking Amitriptyline HCl 10 MG 2 tab(s) orally once a day (at bedtime) Not-Taking Medrol 4 MG as directed orally daily; Duration: 6 days 03/19/2021 Not-Taki ng Imitrex 100 MG 1 tab(s) orally once Not-Taking Immunizations Vaccine Route Administration Date Status Comme nts COVID 19 Jose Unknown 01/02/2021 Administered Social History Tobacco Use: Social History Observation Description Date Details (start date - stop date) Current Smoker NA - NA CURRENT TOBACCO USE: Question Answer Notes Are you a: current smoker How many cigarettes a day do you smoke? 5 or les s Problems Problem Type SNOMED Code ICD Code Onset Dates Problem Status W/U Status Risk Notes Problem Vitamin B12 deficiency (027094339) Vitamin B12 deficiency (E53.8) Active confirmed Problem Postconcussion syndrome (65078982) Post concussion syndrome (F07.81) Active confirmed Problem Multiple premature ventricular complexes (520307273) 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 Vital Signs Heart Rate 74 /min 05/23/2025 Blood pressure diastolic 68 mm Hg 05/23/2025 Height 75.5 in 05/23/2025 Blood pressure systolic 120 mm Hg 05/23/2025 Weight 188.8 lbs 05/23/2025 BMI 23.28 kg/m2 05/23/2025 Encounters Encounter Location Date Provider Diagnosis [facility] [address] [place] [id number] 05/23/2025 R Kolby Diana PSVT (paroxysmal supraventricular tachycardia) I47.10 ; Frequent PVCs I49.3 ; Chest pain R07.9 and Vitamin B 12 deficiency E53.8 Assessments Encounter Date Diagnosis (ICD Code) Assessment Notes Treatment Notes Treatment Clinical Notes Section Notes 05/23/2025 Frequent PVCs (ICD-10 - I49.3) 05/23/2025 PSVT (paroxysmal supraventricular tachycardia) (ICD-10 - I47.10) 05/23/2025 Chest pain (ICD-10 - R07.9) 05/23/2025 Vitamin B 12 deficiency (ICD-10 - E53.8) Plan Of Treatment Pending Test Test Name Order Date Cardiac Stress Test Exercise Routine CBC Venipuncture (in house) 05/23/2025 Holter Monitor- 48 hour 05/23/2025 P-Vitamin B12 05/23/2025 P-Comprehensive Metabolic Panel (CMP) P-Lipid Panel 05/23/2025 P-TSH 05/23/2025 Insurance Providers Payer Name Payer Address Payer Phone Subscriber Number Group Number Insured Name Patient Relationship to Insured Coverage Start Date Coverage End Date [facility] [address] [place] [address] [id number] CIEOL LY Self - patient is the insured Medications Administered Medication Instructions Date of Administration Dosage Notes B-12 08/04/2021 1 mL B-12 08/10/2021 1 mL B-12 08/18/2021 1 mL B-12 08/25/2021 1 mL Medical (General) History Medical History History ICD Code kidney stones ? PSVT - s/p ablation LYNSEY - [facility] Surgical History Surgery Date(Month/Year) tonsillectomy left elbow surgery cardiac ablation- 2014 Hospitalization History Reason Date(Month/Year) UTC-dizzy spells 07/16
== END 2025-05-23 23:59 | disposition home or self-care (01) ==
PROVIDERS: PCP Family Medicine; Visit Provider Family Medicine
DX: I49.3 Ventricular premature depolarization (principal); R94.31 Abnormal electrocardiogram [ECG] [EKG]
CPT/HCPCS: 93225; 93227

== ENCOUNTER 2025-05-28 09:54 | Outpatient (CLI) | payer BC, SELFPAY ==
--- OUTSIDE RECORDS SUMMARY | 2025-05-23 05:00 | XMS_ITS ---
Author Organization [facility] Address [address] [place] [id number] Care Team Providers Care Lighting Engineer Name Role Phone Disha Diana Unavailable [phone] Allergies No Known Allergies Results Component Value Reference Range Notes CBC Venipuncture (in house) Reviewed date:05/28/2025 08:40:18 AM Interpretation:normal Performing Lab: Notes/Report: normal wbc 7.0 3.5 - 10 lymph 24.1 15 - 50 mid 6.5 2 - 15 gran 69.4 35 - 80 rbc 4.84 3.5 - 5.5 hgb 15.1 11.5 - 16.5 hct 45.1 35 - 55 mcv 93.1 75 - 100 mch 31.2 25 - 35 mchc 33.4 31 - 38 platlet 229 100 - 400 P-Vitamin B12 Reviewed date:05/28/2025 08:40:17 AM Interpretation:>2000 Performing Lab: Notes/Report: Test performed by [facility] [address] [place] [address] , [address], [place] [address] Osmar Tamayo MD, Litharge Supervisor CLIA: [id number] Vitamin B12 >2000 232-1245 pg/mL P-Comprehensive Metabolic Pa ekaterina (CMP) Reviewed date:05/28/2025 08:40:18 AM Interpretation:FBS 362 Performing Lab: Notes/Report: Test performed by [facility] [address] [place], [place] [address] , [address], [place] [address] Osmar Tamayo MD, Litharge Supervisor CLIA: [id number] Sodium 138 135-145 mmol/L Potassium 4.4 3.5-5.3 mmol/L Chloride 102 97-108 mmol/L CO2 26 20-32 mmol/L Glucose 362 65-99 mg/dL BUN 16 6-20 mg/dL Creatinine 1.02 0.70-1.30 mg/dL Calcium 9.9 8.6-10.4 mg/dL eGFR by Creatinine 88 >59 mL/min/1.73m2 Protein 6.6 6.0-8.3 g/dL Albumin 4.1 3.5-5.3 g/dL Alkaline Phosphatase 92 40-129 IU/L ALT (SGPT) 17 <5-55 IU/L AST (SGOT) 16 <5-46 IU/L Bilirubin, Total <0.2 <0.2-1.2 mg/dL A/G Ratio 1.6 1.1-2.5 P-Lipid Panel Reviewed date:05/28/2025 08:40:18 AM Interpretation:LDL 136 Performing Lab: Notes/Report: Test performed by [facility], [address] , [address], [place] [address] Osmar Tamayo MD, Litharge Supervisor CLIA: [id number] Cholesterol 209 <200 mg/dL Triglycerides 201 <150 mg/dL HDL Cholesterol 33 >39 mg/dL Cholesterol / HDL Ratio 6.33 0.00-4.99 Ratio Non-HDL Cholesterol 176 <130 mg/dL LDL Cholesterol (Calculation) 136 <130 mg/dL LDL Cholesterol Levels* Less than 100 mg/dL Optimal 100 to 129 mg/dL Near Optimal/ Above Optimal 130 to 159 mg/dL Borderline High 160 to 189 mg/dL High 190 mg/dL and above Very High * Categories as recommended by the 2004 ATPIII guidelines LDL/HDL Ratio 4.1 <3.3 Ratio LDL Cholesterol Patient History Test Date: 05/23/2025 LDL Results: 136 Units: mg/dL % Change: - P-TSH Reviewed date:05/28/2025 08:40:18 AM Interpretation:2.77 Performing Lab: Notes/Report: Test performed by [facility] [address] [place] [address] , [address], [place] [address] Osmar Tamayo MD, Litharge Supervisor CLIA: [id number] TSH 2.77 0.43-5.25 mU/L REASON FOR VISIT chest pains Medications Medication SIG (Take, Route, Frequency, Duration) Notes Start Date End Date Status Ondansetron 4 MG 1 tab(s) orally 3 ti mes a day, prn 03/19/2021 Not-Taking Amitriptyline HCl 10 MG 2 tab(s) orally once a day (at bedtime) Not-Taking Medrol 4 MG as directed orally daily; Duration: 6 days 03/19/2021 Not-Taki ng Imitrex 100 MG 1 tab(s) orally once Not-Taking Social History Tobacco Use: Social History Observation Description Date Details (start date - stop date) Current Smoker NA - NA CURRENT TOBACCO USE: Question Answer Notes Are you a: current smoker How many cigarettes a day do you smoke? 5 or les s Problems Problem Type SNOMED Code ICD Code Onset Dates Problem Status W/U Status Risk Notes Problem Multiple premature ventricular complexes (400925827) 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 Vital Signs Weight 188.8 lbs 05/23/2025 Blood pressure systolic 120 mm Hg 05/23/20 25 Blood pressure diastolic 68 mm Hg 025 Heart Rate 74 /min 05/23/2025 Height 75.5 in 05/23/2025 BMI 23.28 kg/m2 05/23/2025 Encounters Encounter Location Date Provider Diagnosis [facility] [address] [place], [place] [id number] 05/23/2025 Disha Diana PSVT (paroxysmal supraventricular tachycardia) I47.10 ; Frequent PVCs I49.3 ; Chest pain R07.9 and Vitamin B 12 deficiency E53.8 Assessments Encounter Date Diagnosis (ICD Code) Assessment Notes Treatment Notes Treatment Clinical Notes Section Notes 05/23/2025 PSVT (paroxysmal supraventricular tachycardia) (ICD-10 - I47.10) 05/23/2025 Frequent PVCs (ICD-10 - I49.3) 05/23/2025 Chest pain (ICD-10 - R07.9) 05/23/2025 Vitamin B 12 deficiency (ICD-10 - E53.8) Plan Of Treatment Pending Test Test Name Order Date Cardiac Stress Test Exercise Routine Holter Monitor- 48 hour 05/23/2025 Next Appt Details Follow Up: after tests, Reas on: Progress Notes * AREN LY WDOB:1970 (54 yo M)Acc No.[id number]:05/23/2025 Progress Notes Patient: AREN LOPEZ Provider: Disha Diana M.D. :1970 A ge:54 Y S ex:Male Date:05/23/2025 Address:[facility] [place] [id number] Subjective: * Chief Complaints: * 1 . Chest pains. * HPI: C ardiology: Aren presents with complaints of cardiac palpitations with associated chest pain that have been occurring more frequently over the past week. Pain radiates down both left and right arms. Symptoms are not related to strenuous activity and typically resolve spontaneously. No complaints of shortness of breath. He has a past history of having cardiac ablation in 2015 no history of coronary artery disease. He does have a family history of heart disease in his father. He smokes 1-1/2 packs of cigarettes per day. He also had been drinking several energy drinks per day and has stopped this. He saw Dr. Dey two years ago with an abnormal event monitor showing a high burden of PVCs. There is no record of follow-up. * ROS: D ERMATOLOGY: no R vish. n o H delmi. G ASTROENTEROLOGY: no V omiting. n o D iarrhea. U ROLOGY: no D ifficulty urinating. n o B lood in urine. * Medical History: K idney stones, ? PSVT - s/p ablation, LYNSEY - [facility]. * Surgical History: t onsillectomy , left elbow surgery , cardiac ablation- [facility] 2014. * Hospitalization/Major Diagno stic Procedure: U TC-dizzy spells 07/16. * Family History: F ather: , heart problems. M other: , esophageal cancer, diagnosed with Hypertension, Diabetes, Heart Disease. Pt has a brother due to shock from a microwave. * Social History: C URRENT TOBACCO USE: Yes A re you a: c urrent smoker, H ow many cigarettes a day do you smoke? 5 or less. C affeine: yes, frequency:. Home smoke detector use: yes. Alcohol: Yes, Type: beer. * Medications: N ot-Taking Amitriptyline HCl 10 MG Tablet 2 tab(s) orally once a day (at bedtime) , Not-Taking Imitrex 100 MG Tablet 1 tab(s) orally once , Not-Taking Medrol 4 MG Tablet Therapy Pack as directed orally daily , Not-Taking Ondansetron 4 MG Tablet Disintegrating 1 tab(s) orally 3 times a day, prn , Medication List reviewed and reconciled with the patient * Allergies: N .K.D.A. Objective: * Vitals: W t: 188.8, Temp: 98.6, BP: 120/68, HR: 74, O2 Sat: 98% on RA, Nurse: [facility], Ht: 75.5, BMI:23.28. * Examination: G eneral Examination: General Appearance: N AD. H EENT: u nremarkable.?Neck: s upple, no lymphadenopathy. C hest: n ormal shape and expansion. H eart:?RSR, N o murmurs or ectopy. L ungs: C oarse breath sounds. E xtremities: n o leg edema. ? Assessment: * Assessment: 1. P SVT (paroxysmal supraventricular tachycardia) - I47.10 (Primary) 2 . F requent PVCs - I49.3 3 . C hest pain - R07.9 4 . V itamin B 12 deficiency - E53.8 Plan: * Treatment: Value Reference Range A /G Ratio 1.6 1.1-2.5 - * A lbumin 4.1 3.5-5.3 - g/dL * A lkaline Phosphatase 92 40-129 - IU/L * A LT (SGPT) 17 <5-55 - IU/L * A ST (SGOT) 16 <5-46 - IU/L * B ilirubin, Total <0.2 <0.2-1.2 - mg/dL * B UN 16 6-20 - mg/dL * C alcium 9.9 8.6-10.4 - mg/dL * C hloride 102 97-108 - mmol/L * C O2 26 20-32 - mmol/L * C reatinine 1.02 0.70-1.30 - mg/dL * G lucose 362 H 65-99 - mg/dL * P otassium 4.4 3.5-5.3 - mmol/L * S odium 138 135-145 - mmol/L * P rotein 6.6 6.0-8.3 - g/dL * e GFR by Creatinine 88 >59 - mL/min/1.73m2 * Disha Diana 05/28/2025 08:38:35 AM EDT > Labs reviewed. Started on Metformin. Will discuss further at f/u appt ?LAB: P-Lipid Panel (Collection Date & Time - 05/23/2025 08:29 AM)?LDL 136* Value Reference Range C holesterol / HDL Ratio 6.33 H 0.00-4.99 - Ratio * C holesterol 209 H <200 - mg/dL * H DL Cholesterol 33 L >39 - mg/dL * L DL Cholesterol (Calculation) 136 H <130 - mg/d L * L DL/HDL Ratio 4.1 H <3.3 - Ratio * N on-HDL Cholesterol 176 H <130 - mg/dL * T riglycerides 201 H <150 - mg/dL * Disha Diana 05/28/2025 08:38:35 AM EDT > Labs reviewed. Started on Metformin. Will discuss further at f/u appt 2.?Frequent PVCs?LAB: P-TSH (Collection Date & Time - 05/23/2025 08:29 AM)?2.77* Value Reference Range T SH 2.77 0.43-5.25 - mU/L * Disha Diana 05/28/2025 08:38:35 AM EDT > Labs reviewed. Started on Metformin. Will discuss further at f/u appt ?Imaging: Holter Monitor- 48 hour* Lakeisha Barfield 05/23/2025 09:2 6:46 AM EDT > printed; will give to patient to take to outpatient registration 3.?Chest pain?LAB: CBC Venipuncture (in house) (Collection Date & Time - 05/23/2025)? normal* Value Reference Range w bc 7.0 3.5 - 10 * l ymph 24.1 15 - 50 * m id 6.5 2 - 15 * g ran 69.4 35 - 80 * r bc 4.84 3.5 - 5.5 * h gb 15.1 11.5 - 16.5 * h ct 45.1 35 - 55 * m cv 93.1 75 - 100 * m ch 31.2 25 - 35 * m chc 33.4 31 - 38 * p latlet 229 100 - 400 * Sydni Gilliland 05/23/2025 01:2 3:05 PM EDT > Disha Diana 05/28/2025 08:38:35 AM EDT > Labs reviewed. Started on Metformin. Will discuss further at f/u appt ?Imaging: Cardiac Stress Test Exercise Routine* Lakeisha Barfield 05/23/2025 09:2 9:50 AM EDT > no auth required; CPT code 72953; faxed to [facility] Scheduling 4.?Vitamin B 12 deficiency?LAB: P-Vitamin B12 (Collection Date & Time - 05/23/2025 08:29 AM)?>2000* Value Reference Range V itamin B12 >2000 H 232-1245 - pg/mL * Disha Diana 05/28/2025 08:38:35 AM EDT > Labs reviewed. Started on Metformin. Will discuss further at f/u appt * Procedure Codes: 8 5025 CBC WITH AUTO DIFF, 11017 VENIPUNCT, ROUTINE* * Follow Up: a fter tests * Images: Billing Information: * Visit Code: 25026 Office Visit, New Pt., Level 4. * Procedure Codes: 45256 CBC WITH AUTO DIFF. 00505 VENIPUNCT, ROUTINE*. * Electronic signature of Disha Diana MD on 05/28/2025 at 10:06 AM EDT Sign off status: Pending * Provider: Disha Diana M.D. Date: 05/23/2025 Generated for Lex mattson/Brittnee/Geovannasmitting on: 05/28/2025 10:06 AM EDT History and Physical Notes * HPI (History of Present Illness) Category Sub-Category Detail Notes Category Not es Cardiology He saw Dr. Brisa london two years ago with an abnormal event monitor showing a high burden of PVCs. There is no record of follow-up. Examination Category Sub-Category Detail Notes Category Not es General Examination HEENT: unremarkable Heart: RSR, No murmurs or e ctopy Lungs: Coarse breath sounds Extremities: no leg edema General Appearance: NAD Neck: supple, no lymphaden opathy Chest: normal shape and exp ansion
--- NOTE | 2025-05-28 | CA_ITS ---
APPROVED REPORT Exam: Exercise Treadmill Technologist: Ale Baron Stress Nurse: Kenya Reeves Ht: 6 ft 2 in Wt: 188 lbs BSA: 2.12 m2 HR: 63 bpm BP: 128/84 mmHg Rhythm: SR/PVC Medical History Medical History: Smoking Allergies: No known drug allergies Cardiac Risk Factors: Smoking Stress Test Details Test: Exercise stress testing was performed using a John protocol. HR Resting HR: 63 bpm Max Heart Rate (APMHR): 167.517209 bpm Max HR Achieved: 141 bpm Target HR (85% APMHR): 141.105463 bpm % of APMHR: 84.43 Recovery HR: 82 bpm BP Resting BP: 128.0/84.0 mmHg Max BP: 165.0/80.0 mmHg Recovery BP: 144.0/86.0 mmHg ECG Resting ECG: SR/PVC Stress ECG Conclusion Test stopped at 6:12 due to dyspnea/fatigue Max HR: 141 % of PM: 84 Max BP: 165/80 Mets: 7.4 Test stopped due to: Dyspnea PVC/PAC/ Ventricular couplets/ ventricular tachycardia Less than 0.5mm upsloping ST segment changes Sainz Treadmill score +6 Frequent ventricular ectopy, 4 beat run multifocal ventricular tachycardia Electronically signed by : Kim Crabtree MD 05/29/2025 17:18:18
--- OUTSIDE RECORDS SUMMARY | 2025-05-28 10:06 | XMS_ITS | Patient Health Record ---
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 Name Role Phone Disha Diana Unavailable [phone] Allergies No Known Allergies Results Component Value Reference Range Notes EM Reviewed date:05/22/2025 09:13:11 AM Interpretation: Performing Lab: Notes/Report: P-TSH Reviewed date:05/28/2025 08:40:18 AM Interpretation:2.77 Performing Lab: Notes/Report: Test performed by [facility] [address] [place] [address] , [address], [place] [address] Osmar Tamayo MD, Photocomposing Machine Operator CLIA: [id number] TSH 2.77 0.43-5.25 mU/L P-Lipid Panel Reviewed date:05/28/2025 08:40:18 AM Interpretation:LDL 136 Performing Lab: Notes/Report: Test performed by [facility] [address] [place] [address] , [facility] [place] [address] Osmar Tamayo MD, Photocomposing Machine Operator CLIA: [id number] Cholesterol 209 <200 mg/dL Triglycerides 201 <150 [...] Results: 136 Units: mg/dL % Change: - P-Comprehensive Metabolic Pa ekaterina (CMP) Reviewed date:05/28/2025 08:40:18 AM Interpretation:FBS 362 Performing Lab: Notes/Report: Test performed by [facility], [address] , [facility], [place] [address] Osmar Tamayo MD, Photocomposing Machine Operator CLIA: [id number] Sodium 138 135-145 mmol/L Potassium 4.4 3.5-5.3 [...] <0.2 <0.2-1.2 mg/dL A/G Ratio 1.6 1.1-2.5 P-Vitamin B12 Reviewed date:05/28/2025 08:40:17 AM Interpretation:>1999 Performing Lab: Notes/Report: Test performed by [facility] [address] [place] [address] , [address], [place] [address] Osmar Tamayo MD, Photocomposing Machine Operator CLIA: [id number] Vitamin B12 >1999 232-1245 pg/mL CBC Venipuncture (in house) Reviewed date:05/28/2025 08:40:18 [...] - 38 platlet 229 100 - 400 Reason For Referral No Information Medications Medication [...] Status Risk Notes Problem Vitamin B12 deficiency (097577181) Vitamin B12 deficiency (E53.8) Active confirmed Problem Postconcussion syndrome (09308735) Post concussion syndrome (F07.81) Active confirmed Problem Multiple premature ventricular complexes (363583965) 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 Vital Signs Heart Rate 74 /min 05/23/2025 Blood pressure diastolic 68 mm Hg 05/23/2025 Height 75.5 in 05/23/2025 Blood pressure systolic 120 mm Hg 05/23/2025 Weight 188.8 lbs 05/23/2025 BMI 23.28 kg/m2 05/23/2025 Encounters Encounter Location Date Provider Diagnosis [facility] [address] MOHAMUD Nguyen [phone] 05/23/2025 R Kolby Diana PSVT (paroxysmal supraventricular [...] Exercise Routine Holter Monitor- 48 hour 05/23/2025 Insurance Providers Payer Name Payer Address Payer Phone Subscriber Number Group Number Insured Name Patient Relationship to Insured Coverage Start Date Coverage End Date [employer] [address] [place] [address] [id number] Self - patient is the insured [...]
[2025-05-28 10:35] VITALS: BP 128/84; BP 165/80; PULSE 63; RESP 14
== END 2025-05-28 23:59 | disposition home or self-care (01) ==
LOC: RT 09:56
PROVIDERS: PCP Family Medicine; Visit Provider Family Medicine
DX: I49.3 Ventricular premature depolarization (principal); I47.20 Ventricular tachycardia, unspecified; R94.31 Abnormal electrocardiogram [ECG] [EKG]
CPT/HCPCS: 93017; 93018